=== PATIENT | female | born 1960 ===

== ENCOUNTER 2017-05-17 12:26 | Emergency (ER) | payer BC, OTHER ==
[~2017-05-17] VITALS: Ht 172.7 cm; Wt 76.0 kg
[2017-05-17 12:28] VITALS: BP 136/85; PULSE 77; RESP 16; TEMP 97.3; O2SAT 100
[2017-05-17] MEDS ORDERED: IMIT25TA PO (13:07)
[2017-05-17] MEDS ORDERED: CYMB60CA PO (13:07)
[2017-05-17] MEDS ORDERED: TRAM50TA PO (13:07)
[2017-05-17] MEDS ORDERED: TOPI50TA7 PO (13:07)
[2017-05-17] MEDS ORDERED: diphenhydrAMINE HCL 50 MG/ML VIAL IV PUSH ONE (13:30)
[2017-05-17] MEDS ORDERED: PROCHLORPERAZINE INJ 10 MG/2 ML VIAL IV PUSH ONE (13:30)
--- NOTE | 2017-05-17 14:05 | PD ---
HPI . Headache Chief Complaint: Headache Time Seen by Provider: 13:16 Travel History International Travel<30 days: No Contact w/Intl Traveler<30days: No Traveled to known affect area: No History of Present Illness HPI 57 yo F with cc "headache". Patient is visiting from out of town and is present here with daughter. Daughter provides most of history due to pain reported by patient. Daughter states that her mother arrived yesterday with an ear ache that did not resolve after a flight. The patient has a history of migraines and woke up this morning with right sided 7/10 headache with light sensitivity and watery eyes and right nostril pain and nausea. She took Imitrex but the pain did not resolve so she presented to ER. [facility] Past Medical History Diminished Hearing: No Migraines: Yes Tetanus Vaccination: < 5 Years Influenza Vaccination: Yes ?: Not Past Surgical History Hysterectomy: Yes Other Surgery: Yes (Bilateral meniscus) Social History Alcohol Use: Yes (occassional wine) Tobacco Use: No Substance Use: No Allergies-Medications (Allergen,Severity, Reaction): Coded Allergies: No Known Allergies (Unverified , 05/17/17) Reported Meds & Prescriptions Reported Meds & Active Scripts Active Reported Tramadol (Tramadol HCl) 50 Mg Tab Unknown Dose PO Q6H PRN Cymbalta DR (Duloxetine HCl) 60 Mg Capdr 60 Mg PO DAILY Topiramate 50 Mg Tab Unknown Dose PO BID Imitrex (Sumatriptan Succinate) 25 Mg Tab Unknown Dose PO ONCE PRN If a satisfactory response has not been obtained at 2 hours, a second dose may be administered Review of Systems ROS Limitations: Poor Historian Except as stated in HPI: all other systems reviewed are Neg General / Constitutional: No: Fever, Chills HENT: Positive: Headaches, Earache, No: Neck Stiffness, Neck Pain Gastrointestinal: Positive: Nausea Physical Exam Narrative GENERAL: Sleepy but arousable. The daughter states that this is how she usually acts when she has a migraine. SKIN: Warm and dry. Good color. HEAD: Normocephalic/atraumatic. Nontender. EYES: Pupils are equal. Extraocular movements are intact. ENT: TMs are shiny and mackay. No perforation. NECK: Normal range of motion. Supple. CARDIOVASCULAR: Regular rate and rhythm. RESPIRATORY: Nonlabored respirations. MUSCULOSKELETAL: Atraumatic. NEUROLOGICAL: Cranial nerves are grossly intact. 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 PSYCHIATRIC: Appropriate mood and affect. Data Data Last Documented VS Vital Signs Date Time Temp Pulse Resp B/P (MAP) Pulse Ox O2 Delivery O2 Flow Rate FiO2 05/17/17 15:10 73 16 119/66 (83) 96 Room Air 05/17/17 12:28 97.3 Orders Orders ^ Saline Lock (05/17/17 13:16) Diphenhydramine Inj (Benadryl Inj) (05/17/17 13:30) Prochlorperazine Inj (Compazine Inj) (05/17/17 13:30) Ketorolac Inj (Toradol Inj) (05/17/17 14:45) Ed Discharge Order (05/17/17 15:33) MDM Medical Decision Making Medical Screen Exam Complete: Yes Emergency Medical Condition: Yes Differential Diagnosis Differential diagnosis of headache includes but is not limited to migraine, muscle contraction headache, brain tumor, brain bleed Narrative Course This patient presents for the evaluation and treatment of a migraine headache. She has a history of same. An IV was started and she was given Compazine and Benadryl. She reports some improvement in her headache but is still complaining with significant pain. Toradol has subsequently. Pain down to 1/10. Will d/c. Diagnosis Primary Impression: Migraine Qualified Codes: G43.909 - Migraine, unspecified, not intractable, without status migrainosus Patient Instructions: Acute Headache (DC), Barotrauma (DC), General Instructions Disposition: 01 DISCHARGE HOME Condition: Stable Charissa Pandya MD May 17, 2017 14:05
[2017-05-17 14:11] VITALS: BP 116/65; PULSE 75; RESP 18; O2SAT 100
[2017-05-17] MEDS ORDERED: KETOROLAC TROMETHAMINE 30 MG/ML (IVP) VIAL IV PUSH ONE (14:45)
[2017-05-17 15:10] VITALS: BP 119/66; PULSE 73; RESP 16; O2SAT 96
== END 2017-05-17 15:46 | disposition home or self-care (01) ==
LOC: PHED 12:26
DX: G43.909 Migraine, unspecified, not intractable, without status migrainosus (principal)
CPT/HCPCS: 96374; 96375; 99284; J0780; J1200; J1885